=== PATIENT | female | born 1955 | race Caucasian/White ===

== ENCOUNTER 2024-01-24 21:26 | Emergency (ER) | payer OTHER ==
[~2024-01-24] VITALS: Ht 170.2 cm; Wt 81.6 kg
[2024-01-24 21:31] VITALS: BP_SYST 155; PULSE 102; RESP 20; TEMP 97.9; O2SAT 97
[2024-01-24] MEDS ORDERED: GABA-529 PO (23:44)
[2024-01-24] MEDS: KETOROLAC TROMETHAMINE 15 MG VIAL IM ONE (23:48)
[2024-01-24 23:55] VITALS: BP_SYST 155; PULSE 102; RESP 20; TEMP 97.9; O2SAT 97
== END 2024-01-24 23:55 | disposition home or self-care (01) ==
LOC: SED 21:26
DX: M79.605 Pain in left leg (principal); M79.604 Pain in right leg; F12.90 Cannabis use, unspecified, uncomplicated; Z79.899 Other long term (current) drug therapy
CPT/HCPCS: 99283; 96372; J1885

== ENCOUNTER 2024-04-03 21:28 | Emergency (ER) | payer BC, OTHER ==
[~2024-04-03] VITALS: Ht 172.7 cm; Wt 90.7 kg
[~2024-04-03 21:28] MED LIST: GABA-529 PO
[2024-04-03 21:36] VITALS: BP_SYST 126; PULSE 95; RESP 20; TEMP 98; O2SAT 98
[2024-04-03 21:57] VITALS: BP_SYST 126; PULSE 95; RESP 20; TEMP 98; O2SAT 98
== END 2024-04-03 21:57 | disposition home or self-care (01) ==
LOC: SED 21:28
DX: Z43.3 Encounter for attention to colostomy (principal); Z98.890 Other specified postprocedural states; Z79.899 Other long term (current) drug therapy
CPT/HCPCS: 99281